=== PATIENT | female | born 1975 ===

== ENCOUNTER 2022-12-08 04:25 | Day surgery (SDC) | payer BC ==
[2022-12-06 15:36] VITALS: BMI 27.3
[2022-12-08 11:39] VITALS: BP 100/55; PULSE 66; RESP 19; TEMP 98.3
== END 2022-12-08 11:45 | disposition home or self-care (01) ==
LOC: JASU-ENDO 04:25
PROVIDERS: ATTEND Internal Medicine Gastroenterology
PROC: 0DJD8ZZ Inspection of Lower Intestinal Tract, Via Natural or Artificial Opening Endoscopic (ICD-10-PCS; principal; 2022-12-08 10:00)
DX: Z12.11 Encounter for screening for malignant neoplasm of colon (principal)